=== PATIENT | female | born 1945 | race Caucasian/White ===

== ENCOUNTER 2023-01-05 07:55 | Outpatient (CLI) | payer MEDICARE, BC, SELFPAY | END 2023-01-05 07:56 | disposition home or self-care (01) | LOC: NFLDREF 12:46 | PROVIDERS: PCP Internal Medicine; Referring Provider Internal Medicine; Visit Provider Internal Medicine | DX: E03.9 Hypothyroidism, unspecified (principal); E78.5 Hyperlipidemia, unspecified; I10 Essential (primary) hypertension; E87.1 Hypo-osmolality and hyponatremia | CPT/HCPCS: 80048; 80061; 82784; 83520; 84155; 84165; 84443; 86334 ==

== ENCOUNTER 2023-02-07 09:00 | Outpatient (RCR) | payer MEDICARE, BC, SELFPAY ==
--- NOTE | 2022-11-01 15:32 | PT.OPEX ---
PT [place] Outpatient Eval PT [facility] Outpatient Eval Start: 11/01/22 10:54 Freq: Status: Active Protocol: Document 11/01/22 10:55 EVANGELINA (Rec: 11/01/22 15:28 EVANGELINA [id number]) E-signed By Isiah Sweet, PT Physical Therapy Outpatient Evaluation Insurance Information Insurance Name Medicare B,Blue Cross/Blue Shield Medical Diagnosis Trapezius muscle strain Treating Diagnosis Postural dysfunction Limited neck mobility Right trap spasm Referring MD Curiel Subjective Subjective Pt. reports onset of right sided upper trap area pain and spasms a couple of weeks ago for no apparent reason or noted injury. She feels pretty good in the morning but gets more pain and tightness as the day goes on, although she has been able to sleep well thus far. No history of similar symptoms noted. She has been doing a lot of bike riding this Spring which may be a factor in her current pain. She has good overall health with some aches and pains and joint stiffness with history of right TKA. Her goal is to be able to ride her bike and perform all ADL's without pain again. Pain Comments 01/05 10/05 now Date of Last Physician Visit 10/25/22 Current Work Status Retired Preferred Name Deborah Objective Range of Motion CROM: flexion WNL; extension 75%; left rotation 80%; right rotation 70%; bilat. SBing 60 %. Mild limitations in bilat. shoulder AROM. Strength deconditioning of scapular stabilizers, deep neck flexors , and posterior cuff muscles. Swelling none noted Palpation hypertonus/spasm of right upper trap, scalenes and interscapular muscles. Posture Increased thoracic kyphosis with mild rounding of shoulders and forward head posture. Functional Test Performed & Score negative spurlings and quadrant testing Assessment Assessment/Impression Objectively, pt. demonstrates; increased thoracic kyphosis with rounded shoulders and forward head posture; hypomobility of T-spine and ribs; mild loss of CROM but negative joint testing other than some segmental hypomobility; and hypertonus/ spasm of right upper trap, levator scapula and scalene muscles; deconditioning of scapular stabilizers and deep neck flexors. She would benefit from skilled therapy working on improving spinal mobility and postural strength . Primary Functional Limitations turning head fully, being comfortable in the evenings Plan of Care Rehabilitation Potential Excellent Physical Therapy Goals 1. Pt. will be independent with HEP for self maintenance in 8 weeks. 2. Pt. will demonstrate improved mobility of thoracic and cervical spine in 8 weeks. 3. Pt. will report a 50% or greater improvement in her right upper trap pain/spasms in 8 weeks. Coordination/Communication With Referral Source Treatment Plan/Direct Interventions Joint Mobilization,Manual Therapy,Self-Care/Home Management,Therapeutic Exercises Frequency/Duration 2-6 visits over 8 weeks. Patient Will Be Discharged From Therapy Independent w/HEP, Independently Progressing Evaluation Billing Complexity Low Certification Information Initial Certification Date 11/01/22 Ending Certification Date 01/24/23 Provider Signature Shows Agreement With POC & Medical Necessity Physician Signature & Date Requested Please Sign/Date Here Physician Comment/Change : Physician NPI Number #
--- NOTE | 2023-01-12 08:12 | PT.OPDNX ---
PT [place] Outpatient Daily Note PT [facility] Out[facility] Daily Note Start: 11/01/22 10:54 Freq: Status: Active Protocol: Document 01/11/23 13:07 AMS (Rec: 01/11/23 16:44 AMS [id number]) E-signed By Yesenia Mayorga, PT PT OP Daily Progress Note Visit Information Note Type Daily Note,Recert/Progress Note,Re-Evaluation Visit Number 4 Insurance Information Insurance Name Medicare B,Blue Cross/Blue Shield Medical Diagnosis Trapezius muscle strain Treating Diagnosis Postural dysfunction Limited neck mobility Right trap spasm Referring MD Curiel Subjective Subjective Patient returns to physical therapy with right upper trapezius pain that has not been getting better since last visit in October. She kept hoping it would get better, so didn't return, but it has gotten a little worse despite doing her exercises. She localizes pain to left upper cervical spine, radiating down into her upper back. Denies numbness, tingling, or injury to area. Does notice some painless crepitus with cervical rotation. Was taking ibuprofen, which was helpful, but not anymore. Originally, she was doing her exercises daily, but now has stopped as she felt like they weren't working. Describes aggravating factors/functional limitations as neck motion looking left > right with social gatherings and driving, looking down for prolonged periods to cut vegetables, biking, and sleeping at night (wakes her up several times each night). Feels like the manual therapy was helpful for one day, but not long-lasting relief. Pain Comments 3/10 at rest, can be more with repetitive neck movements Preferred Name Deborah Precautions Treatment Precautions/Contraindications Hypothyroidism (s/p thyroidectomy), hypertension Home Exercise Home Exercise Comments Access Code: [email or web address] URL: [email or web address] Date: 01/11/2023 Prepared by: Yesenia Mayorga Exercises - Prone W Scapular Retraction - 1 x daily - 4 x weekly - 3 sets - 12 reps - Supine Chin Tuck - 1 x daily - 4 x weekly - 3 sets - 15 reps - Seated Assisted Cervical Rotation with Towel - 1 x daily - 7 x weekly - 3 sets - 10 reps - 2-3 seconds hold Objective Other/Pertinent Objective SPINAL ALIGNMENT/POSTURE: Forward head/rounded shoulders , mild thoracic kyphosis CERVICAL AROM (PROM) Flexion: 45 Extension: 45 Right Rotation: 85 deg, mild pain Left Rotation: 65 deg* Right sidebend: WNL Left sidebend: WNL *pain in left upper cervical spine THORACIC ROM Flexion: 100% Extension: 100% Right Rotation: 100% Left Rotation: 100% Right Sidebend: 100% Left Sidebend: 100% SHOULDER AROM WNL, pain-free NECK/SHOULDER MMT: Deep neck flexor endurance test (normal is 39 sec for men , 30 sec for women): 22 sec Shoulder flexion: R 5/5 L 5/5 Shoulder abduction: R 5/5 L 5/ 5 Shoulder External Rotation: R 5/5 L 5/5 Shoulder Internal Rotation: R 5/5 L 5/5 Mid-trap: R 4/5 L 4/5 Lower trap: R 3/5 L 3/5 SPECIAL TESTS -Spurling's Test: - -Cervical distraction test: - -Upper Limb Tension Test ( Median/Ulnar/Radial): NT -Flexion rotation Test: - JOINT MOBILITY/PALPATION -Mild TTP over mid-thoracic spine and with PA mobilizations to upper cervical spine. Significant increase in tone/muscle guarding in bilateral trapezius, levator scapulae, and suboccipital muscles Patient Instructed in Risks/Benefits Yes Therapeutic Exercise Therapeutic Exercise Minutes (minutes) 15 Therapeutic Exercise: To Restore Patient was educated on Functional Status anatomy, physiology as it relates to current condition and HEP with use of handout/ [employer]. Patient verbalizes understanding and agrees with POC/goals Education: -Soreness rules with goal of symptoms returning to baseline within 24 hours and that evening -Reviewed and adapted HEP as appropriate (handout provided) , pt had not tried self- massage with tennis ball at home per last appointment so reviewed this as well Pt educated in the following exercises to improve range of motion, tissue tolerance, and/ or strength with verbal/ tactile cues as necessary: Access Code: [email or web address] URL: [email or web address]/ Date: 01/11/2023 Prepared by: Yesenia Mayorga Exercises - Prone W Scapular Retraction - 1 x daily - 4 x weekly - 3 sets - 12 reps - Supine Chin Tuck - 1 x daily - 4 x weekly - 3 sets - 15 reps - Seated Assisted Cervical Rotation with Towel - 1 x daily - 7 x weekly - 3 sets - 10 reps - 2-3 seconds hold Treatment Minutes Untimed Code Treatment Minutes 25 Timed Code Treatment Minutes 20 Total Treatment Time 45 Billing Units Therapeutic Exercise Units 1 Re-Evaluation Units 1 Assessment/Impression Assessment/Impression Pt is a 77 -year-old female who presents with continuing concerns of left upper cervical/posterior shoulder pain and moderate severity and irritability. Signs and symptoms are likely indicating / consistent with left upper trapezius pain. Patient was last seen in therapy on November 15 and instructed to return if symptoms were not improving ; pt did not return so was discharged from therapy. Re- evaluation performed today; will obtain new order from physician. On exam, patient also demonstrates notable objective findings including limited left cervical rotation ROM as compared to opposite side, increased muscle tone in upper trap/levator scapulae B , and decreased cervical deep neck flexor/periscapular strength, leading to difficulties with cervical rotation at social gatherings, driving, biking, sleeping without pain, and tasks that require prolonged cervical flexion. Reviewed and adapted patient's HEP this visit for improved patient comfort and compliance. Patient will benefit from combination of therapeutic exercise, patient education, and manual therapy prn. Patient is appropriate for skilled physical therapy services to address the above deficits. Pt was agreeable with plan of care and goals established. Plan of Care Physical Therapy Goals 1. Pt. will be independent with HEP for self maintenance in 8 weeks. 2. Pt. will demonstrate cervical rotation >10 degree improvement to left to improve ability to perform ADLs and drive. 3. Patient will report pain levels < 2/10 with all activity in 8 weeks in order to improve functional mobility at home, work, and during functional leisure activities. 4. Patient is able to sleep with waking 0-1 times per night due to pain in 8 weeks. Daily Plan of Care Change POC; See Comments Daily Plan of Care Comments Pt previously discharged, re- evaluation 01/11/23 Recertification Information Initial Certification Date 11/01/22 Recertification Start Date 01/11/23 Recertification Due Date 04/06/23 Reasons to Continue Skilled Therapy Patient returns to physical therapy 2 months since last visit with ongoing reports of left-sided cervical pain that radiates down into her shoulder. She has made improvements in therapy since her first visit as demonstrated by decreased pain severity from 8/10 to 3/10 on average, but continues to have residual pain and limited left cervical rotation ROM that limits her ability to turn her head while driving and talking to friends, sleep soundly, and maintain prolonged cervical flexion positions to cut vegetables. Will see patient 1x/week for 6 -8 more visits, working on periscapular and deep neck flexor strengthening and range of motion to increase tolerance to activity/load. Patient would benefit from continued skilled PT services to address these issues and to maximize function. Continued Plan of Care and Interventions Therapeutic exercise Manual therapy Therapeutic activities Joint mobilizations Self-care activities Neuromuscular Re-education Provider Signature Shows Agreement With POC & Medical Necessity Discharge Note Interventions Provided During Treatment Joint Mobilization,Manual Therapy,Neuromuscular Re-Ed, Therapeutic Activities, Therapeutic Exercise Thank You For This Referral .
== END 2023-06-07 23:59 | disposition home or self-care (01) ==
PROVIDERS: PCP Internal Medicine; Visit Provider Internal Medicine
DX: S46.819A Strain of other muscles, fascia and tendons at shoulder and upper arm level, unspecified arm, initial encounter (principal); M50.30 Other cervical disc degeneration, unspecified cervical region; M43.6 Torticollis; Z51.89 Encounter for other specified aftercare
CPT/HCPCS: 97110; 97140; 97161; 97164

== ENCOUNTER 2023-02-23 12:28 | Outpatient (CLI) | payer MEDICARE, BC, SELFPAY ==
--- NOTE | 2023-02-23 13:00 | CRLHL7_ITS ---
For Patients: As a result of the Century Cures Act, medical imaging exams and procedure reports are released immediately into your electronic medical record. You may view this report before your referring provider. If you have questions, please contact your health care provider. INDICATION: Neck pain. COMPARISON: 02/13/2023. TECHNIQUE: Sagittal T1, T2, and STIR sequences. Axial T2/gradient sequences. FINDINGS: Normal vertebral body alignment. No fractures. No vertebral body loss of height. No spondylolisthesis. No ligamentous injury. No suspicious osseous lesions. Normal cord signal. No intradural mass or lesion. C1-2: No spinal canal narrowing. C2-3: Disc degeneration posted disc bulge. No spinal canal neural foraminal narrowing. C3-4: Disk degeneration post disc bulging disc osteophyte complex. Mild narrowing of spinal canal. No neural foraminal narrowing. C4-5: Disc generation posted disc bulging disc osteophyte complex. Mild narrowing of spinal canal. Moderate right and mild left neural foraminal narrowing. C5-6: Disc generation posterior disc bulge disc osteophyte complex. Mild narrowing of spinal canal. No neural foraminal narrowing. C6-7: Disc generation posted disc bulged disc osteophyte complex. No spinal canal or neural foraminal narrowing. C7-T1: No narrowing of spinal canal. No neural foraminal narrowing. No spinal canal or neural foraminal narrowing in the visualized upper thoracic spine. IMPRESSION: 1. Normal alignment. No fractures. 2. Normal cord signal. 3. Cervical spondylosis. 4. At C3-4, mild narrowing of spinal canal 5. At C4-5, mild narrowing of spinal canal. Moderate right and mild left neural foraminal narrowing. 6. At C5-6, mild narrowing of spinal canal Dictated by Stu Eubanks MD @ 02/24/2023 2:03:14 PM (Electronically Signed)
== END 2023-02-23 12:29 | disposition home or self-care (01) ==
LOC: MRI 12:29
PROVIDERS: PCP Internal Medicine; Visit Provider Family Medicine
DX: M54.2 Cervicalgia (principal); M47.892 Other spondylosis, cervical region; M50.222 Other cervical disc displacement at C5-C6 level
CPT/HCPCS: 72141

== ENCOUNTER 2023-03-08 08:12 | Day surgery (SDC) | payer MEDICARE, BC, SELFPAY ==
[2023-03-08] MEDS: TETRACAINE 0.5% OPHTH 1 DROP EYE-RIGHT ×2 (09:15→09:38)
[2023-03-08] MEDS: KETOROLAC OPHTH 0.5% 1 DROP EYE-RIGHT ×2 (09:15→09:38)
[2023-03-08 09:20] VITALS: BMI 25.0
[2023-03-08 09:23] VITALS: BP 142/82; PULSE 64; RESP 16; TEMP 36.7; O2SAT 99
[2023-03-08] MEDS: SODIUM CHLORIDE 0.9 % (FLUSH) 10 ML SYRINGE IVF (09:24)
--- NOTE | 2023-03-08 09:40 | SUR.PREOP ---
The eye drops brought by the patient (Ketorolac and Prednisolone) are examined and I have determined they are labeled by the patient's pharmacy for this patient as prescribed by the surgeon. The bottles are intact, recently obtained and appear to be correct. Jude CRESPO
[2023-03-08] MEDS: TETRACAINE 0.5% OPHTH 2 DROP EYE-RIGHT (10:24)
[2023-03-08] MEDS: BALANCED SALT IRRIG SOLN 15 ML EYE-RIGHT (10:29)
--- NOTE | 2023-03-08 10:35 | P.ANES_ITS ---
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
--- NOTE | 2023-03-08 10:50 | W.ANESCHARGE ---
Anesthesia Charges Start Date/Time Anesthesia Start Date: 03/08/23 Anesthesia Start Time: 10:21 Stop Date/Time Anesthesia Stop Date: 03/08/23 Anesthesia Stop Time: 10:55 Summary Extremes of Age - Over 70 or under 1: MDA
[2023-03-08 11:05] VITALS: BP 142/77; PULSE 61; RESP 16; TEMP 37.1; O2SAT 99
--- NOTE | 2023-03-08 11:45 | P.OPTPRC_ITS ---
Procedure Note Date of procedure: 03/08/23 Will [facility] bill your pro fee for this procedure?: Yes Procedure Description: SURGEON: Madie Hua MD PREOPERATIVE DIAGNOSIS: Nuclear sclerotic cataract, right eye. POSTOPERATIVE DIAGNOSIS: Nuclear sclerotic cataract, right eye. NAME OF OPERATION: Phacoemulsification of cataract with posterior chamber intraocular lens implantation in the right eye. ANESTHESIA: Topical. ESTIMATED BLOOD LOSS: Less than 2 cc. COMPLICATIONS: None. PATHOLOGY SPECIMEN: None. INDICATIONS: See consult note for details. The risks, benefits and alternatives of the procedure were explained to the patient, who elected to proceed and signed informed consent to do so. PROCEDURE: The patient was brought to the pre-holding area where the right eye was identified as the operative eye. I placed my initials above this eye. The patient received eye drops consisting of 0.5% tetracaine, 1% tropicamide, 10% phenylephrine, and 0.5% ketorolac. The patient was then brought to the operating room where the right eye was again identified as the operative eye. The eye was prepped with Betadine and draped in the usual sterile ophthalmic fashion. A #15 super-sharp blade was used to create a paracentesis site. 1% non-preserved intracameral lidocaine was injected into the anterior chamber. Endocoat was injected into the anterior chamber. A 2.4 mm keratome was used to create a three-plane self-sealing incision 1 mm anterior to the temporal limbus. A cystotome was used to create an anterior capsular leaflet. The Utrata forceps were used to extend this to form a continuous curvilinear capsulorrhexis. Hydrodissection was performed. The cataract was removed with phacoemulsification using the [id number]-[id number] technique. The irrigation and aspiration tip was used to remove the remaining cortex. Healon was injected into the capsular bag. An LINETTE ZCB00 intraocular lens of 20.5 diopters was injected into the capsular bag. The irrigation and aspiration tip was used to remove the remaining viscoelastic. Balanced salt solution on a cannula was used to hydrate the wound, and the wound was found to be watertight. The pupil was noted to be round. DISPOSITION: The patient was taken to the recovery room and discharged to home in stable condition. The patient was instructed to call me or go to the emergency department with any sudden change, including dramatic loss of vision, severe pain in the eye or eyebrow region, nausea, or vomiting. The patient will follow up in the clinic tomorrow morning.
== END 2023-03-08 11:28 | disposition home or self-care (01) ==
PROVIDERS: PCP Internal Medicine; Visit Provider Ophthalmology
PROC: (CPT 66984; principal; 2023-03-08 09:00)
DX: H25.11 Age-related nuclear cataract, right eye (principal)
CPT/HCPCS: 66984; 00120; 00142; 99100; A9270; J2250; J3010; V2632

== ENCOUNTER 2023-03-22 08:03 | Day surgery (SDC) | payer MEDICARE, BC, SELFPAY ==
--- NOTE | 2023-03-22 08:14 | SUR.PREOP ---
The eye drops brought by the patient (Ketorolac and Prednisolone) are examined and I have determined they are labeled by the patient's pharmacy for this patient as prescribed by the surgeon. The bottles are intact, recently obtained and appear to be correct.
[2023-03-22] MEDS: TETRACAINE 0.5% OPHTH 1 DROP EYE-LEFT ×2 (08:27→08:36)
[2023-03-22] MEDS: KETOROLAC OPHTH 0.5% 1 DROP EYE-LEFT ×2 (08:34→08:41)
[2023-03-22 08:36] VITALS: BP 139/70; PULSE 61; RESP 16; TEMP 36.7; O2SAT 99
[2023-03-22 08:54] VITALS: BMI 25.0
[2023-03-22] MEDS: TETRACAINE 0.5% OPHTH 2 DROP EYE-LEFT (09:13)
[2023-03-22] MEDS: BALANCED SALT IRRIG SOLN 15 ML EYE-LEFT (09:17)
[2023-03-22 09:40] VITALS: BP 156/79; PULSE 57; RESP 16; TEMP 36.8; O2SAT 100
--- NOTE | 2023-03-22 09:45 | W.ANESCHARGE ---
Anesthesia Charges Start Date/Time Anesthesia Start Date: 03/22/23 Anesthesia Start Time: 09:10 Stop Date/Time Anesthesia Stop Date: 03/22/23 Anesthesia Stop Time: 09:44
--- NOTE | 2023-03-22 09:52 | W.PM.OPTPROC ---
Procedure Note Date of procedure: 03/22/23 Will [facility] bill your pro fee for this procedure?: Yes Procedure Description: SURGEON: Madie Hua MD PREOPERATIVE DIAGNOSIS: Nuclear sclerotic cataract, left eye. POSTOPERATIVE DIAGNOSIS: Nuclear sclerotic cataract, left eye. NAME OF OPERATION: Phacoemulsification of cataract with posterior chamber intraocular lens implantation in the left eye. ANESTHESIA: Topical. ESTIMATED BLOOD LOSS: Less than 2 cc. COMPLICATIONS: None. PATHOLOGY SPECIMEN: None. INDICATIONS: See consult note for details. The risks, benefits and alternatives of the procedure were explained to the patient, who elected to proceed and signed informed consent to do so. PROCEDURE: The patient was brought to the pre-holding area where the left eye was identified as the operative eye. I placed my initials above this eye. The patient received eye drops consisting of 0.5% tetracaine, 1% tropicamide, 10% phenylephrine, and 0.5% ketorolac. The patient was then brought to the operating room where the left eye was again identified as the operative eye. The eye was prepped with Betadine and draped in the usual sterile ophthalmic fashion. A #15 super-sharp blade was used to create a paracentesis site. 1% non-preserved intracameral lidocaine was injected into the anterior chamber. Endocoat was injected into the anterior chamber. A 2.4 mm keratome was used to create a three-plane self-sealing incision 1 mm anterior to the temporal limbus. A cystotome was used to create an anterior capsular leaflet. The Utrata forceps were used to extend this to form a continuous curvilinear capsulorrhexis. Hydrodissection was performed. The cataract was removed with phacoemulsification using the [id number] technique. The irrigation and aspiration tip was used to remove the remaining cortex. Healon was injected into the capsular bag. An LINETTE ZCB00 intraocular lens of 20.0 diopters was injected into the capsular bag. The irrigation and aspiration tip was used to remove the remaining viscoelastic. Balanced salt solution on a cannula was used to hydrate the wound, and the wound was found to be watertight. The pupil was noted to be round. DISPOSITION: The patient was taken to the recovery room and discharged to home in stable condition. The patient was instructed to call me or go to the emergency department with any sudden change, including dramatic loss of vision, severe pain in the eye or eyebrow region, nausea, or vomiting. The patient will follow up in the clinic tomorrow morning.
--- NOTE | 2023-03-22 11:54 | W.ANESCHARGE ---
Anesthesia Charges Start Date/Time Anesthesia Start Date: 03/22/23 Anesthesia Start Time: 09:10 Stop Date/Time Anesthesia Stop Date: 03/22/23 Anesthesia Stop Time: 09:44 Summary Extremes of Age - Over 70 or under 1: MDA
== END 2023-03-22 10:11 | disposition home or self-care (01) ==
PROVIDERS: PCP Internal Medicine; Visit Provider Ophthalmology
PROC: (CPT 66984; principal; 2023-03-22 08:15)
DX: H25.12 Age-related nuclear cataract, left eye (principal)
CPT/HCPCS: 66984; 00142; 99100; A9270; J2250; J3010; V2632

== ENCOUNTER 2023-04-28 08:45 | Outpatient (RCR) | payer MEDICARE, BC, SELFPAY ==
--- NOTE | 2023-03-16 15:36 | PT.OPEX ---
PT [place] Outpatient Eval PT [facility] Outpatient Eval Start: 03/13/23 14:30 Freq: Status: Active Protocol: Document 03/16/23 14:06 CRP (Rec: 03/16/23 15:34 CRP [id number]) E-signed By Bradford Norton, PT Physical Therapy Outpatient Evaluation Insurance Information Recert Due Date 06/14/23 Insurance Name Medicare B Medical Diagnosis Cervical spine pain Cervical spine Deg disc disease Treating Diagnosis Neck pain Neck stiffness Referring MD Dr Ulloa Subjective Subjective Pt reports about a 2 month hx of R sided neck pain that can radiate out to the point of the shoulder. No known injury . Sleep is generally an issue because of meds she has attempted taking for her neck. Pain is intermittent. When in social events she needs to turn her whole body to face the person she is talking to. Every so often she does have HAs. No UE sxs. Pt notes that sxs tend to be inconsistent. She does not always know what will cause her sxs. Is taking Celebrex but notes that the sxs don't always respond well to the meds. Pain Comments -11/05 Current Work Status Retired Objective Range of Motion Cervical ROM Flex WNL Ext min dec R rot 25% dec with pain on over pressure L rot 10% dec Bilat SB WNL UE ROM WNL bilat Strength MMT Myotomes WNL Palpation Pain with grade 2 mobs R C4-7 Hypomob segmental testing R C4 -7 Posture Mild/mod forward head Sensation/Reflexes Sensation intact to light touch Assessment Assessment/Impression Pt presents to the clinic with signs and sxs consistent with cervical spine DDD/DJD and resulting facet mediated pain on the R. With this the pt shows decreased cervicothoracic spine ROM, painful hypomobility of the cervical spine segments, and poor cervicothoracic spine motor control. Skilled PT is necessary to incorporate ther ex, nm long, manual therapy and pt education to decrease pain and improve functional mobility. Primary Functional Limitations Daily activity with neck motion Plan of Care Rehabilitation Potential Excellent Physical Therapy Goals 1. Pt will be 100% independent with HEP in 6 weeks. 2. Pt will be able to turn head to check traffic without pain in 10 weeks. 3. Pt will be able to socialize with 80% decrease in pain in 12 weeks. Coordination/Communication With Referral Source Treatment Plan/Direct Interventions Joint Mobilization,Manual Therapy,Neuromuscular Re-ed, Self-Care/Home Management, Therapeutic Activities, Therapeutic Exercises Frequency/Duration 1-2x/wk for 12 weeks Patient Will Be Discharged From Therapy Completion of LTG(s),Skills Plateau,Independent w/HEP, Independently Progressing Evaluation Billing Untimed Code Treatment Minutes 30 Complexity Moderate Certification Information Initial Certification Date 03/16/23 Ending Certification Date 06/14/23 Provider Signature Shows Agreement With POC & Medical Necessity Physician Signature & Date Requested Please Sign/Date Here Physician Comment/Change : Physician NPI Number #
== END 2023-08-26 23:59 | disposition home or self-care (01) ==
PROVIDERS: PCP Internal Medicine; Visit Provider Family Medicine
DX: M50.30 Other cervical disc degeneration, unspecified cervical region (principal); M43.6 Torticollis; Z51.89 Encounter for other specified aftercare
CPT/HCPCS: 97110; 97140; 97162

== ENCOUNTER 2023-11-02 10:00 | Outpatient (RCR) | payer MEDICARE, BC, SELFPAY ==
--- NOTE | 2023-09-26 12:32 | PT.OPEX ---
PT [place] Outpatient Eval PT [facility] Out[facility] Eval Start: 09/26/23 07:26 Freq: Status: Active Protocol: Document 09/26/23 07:27 CRP (Rec: 09/26/23 09:12 CRP [id number]) E-signed By Bradford Norton PT Physical Therapy Outpatient Evaluation Insurance Information Recert Due Date 12/25/23 Insurance Name Medicare B Medical Diagnosis Cervical DDD Cervical spine pain Referring MD Dr Curiel Subjective Subjective Pt reports that she is having issues with neck pain that is on the R side. Pt had the same issue at the end of last year. She did have PT that helped. She was doing well for most of the time since that PT but then in the last couple of weeks she has had a return of pain. No known reason for pain. Pain will wake her at night and then it is hard to sleep. Pain is sore and stiff that can be constant with times of sharp stabbing pain. Cannot sit and socialize without pain because she needs to be turning her head to talk to them. Looking down to read does seem to aggravate it. Pain is sore to the touch and pain can radiate to the point of the shoulder. No numbness or tingling. This episode of pain seems worse than last year. Her PT exer feels fine but does not seem to help. Pain Comments 12/05 Current Work Status Retired Objective Other/Pertinent Objective Cervical ROM: Flex WNL. Ext min dec, L rot min dec, R rot mod dec with stretch, bilat SB mod dec Shoulder ROM: WNL bilat MMT: Myotomes WNL Sensation intact to light touch ULNT - WNL Segmental mobility: Seated testing. R to L side glide painful and restricted C4-7. L rot R restricted without pain C4-5. Dorsal/ventral glides restricted C3-4 Functional Test Performed & Score NDI - 34 Assessment Assessment/Impression Pt presents to the clinic with acute on chronic right sided neck pain. Pts pain presentation is very mechanical with painful loss of right to left side gliding and rotation. Pt also demonstrates poor nm control of the CT spine. Skilled PT is necessary to incorporate ther ex, nm long, manual therapy and pt education to decrease pain and improve functional mobility. Primary Functional Limitations Sleep Reading Turning head to check traffic Plan of Care Rehabilitation Potential Excellent Physical Therapy Goals 1. Pt will be independent with HEP in 6 weeks. 2. Pt will turn head to check traffic while driving in 8 weeks. 3. Pt will sleep through the night without pain in 12 weeks . Treatment Plan/Direct Interventions Joint Mobilization,Manual Therapy,Neuromuscular Re-ed, Self-Care/Home Management, Therapeutic Activities, Therapeutic Exercises Frequency/Duration 1-2x/wk for 12 weeks Patient Will Be Discharged From Therapy Completion of LTG(s),Skills Plateau,Independent w/HEP, Independently Progressing Evaluation Billing Untimed Code Treatment Minutes 30 Complexity Moderate Certification Information Initial Certification Date 09/26/23 Ending Certification Date 12/25/23 Provider Signature Shows Agreement With POC & Medical Necessity Physician Signature & Date Requested Please Sign/Date Here Physician Comment/Change : Physician NPI Number #
== END 2024-02-07 13:27 | disposition home or self-care (01) ==
PROVIDERS: PCP Internal Medicine; Visit Provider Internal Medicine
DX: M50.30 Other cervical disc degeneration, unspecified cervical region (principal); Z51.89 Encounter for other specified aftercare
CPT/HCPCS: 97110; 97140; 97162

== ENCOUNTER 2024-01-12 07:32 | Outpatient (CLI) | payer MEDICARE, BC, SELFPAY ==
--- OUTSIDE RECORDS SUMMARY | 2024-01-12 13:15 | XMS_ITS | Clinical Summary ---
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 0 03/19/2015 Active Active Problems Problem Noted Date Diagnosed Date Lumbar disc herniation 04/29/2015 Colon polyp 03/24/2010 Overview: Colonoscopy 02/2010 polyp repeat in 5 years Colonoscopy 02/2015 normal repeat in 5 years Asymptomatic postmenopausal status (age-related) (natural) 08/23/2006 Overview: Menopause Female stress incontinence 08/23/2006 Unspecified essential hypertension 08/23/2006 Candidiasis of vulva and vagina 08/23/2006 Rosacea Immunizations Name Administration Dates Next Due AMB Influenza, IIV3 (Age >=3 years)(Flu Clinic [facility]) 03/26/2010 Influenza A (H1N1), Inactivated (Age >=3 Years) 05/19/2009 Influenza, IIV3 (Age >=3 years) 04/20/2009 Td (Age >=7 Years) 02/21/2005 Zoster (Zostavax-ZVL, live) 08/23/2006 Family History Medical History Relation Name Comments Heart Disease Father Psychiatric illness Mother Kelsey thompson's Relation Name Status Comments Father Mother Social History Tobacco Use Types Packs/Day Years Used Date Smoking Tobacco: Never Alcohol Use Standard Drinks/Week Comments Not Asked 0 (1 standard drink = 0.6 oz pur e alcohol) Sex and Gender Information Value Date Recorded Sex Assigned at Not on file Gender Identity Not on file Sexual Orientation Not on file Obstetrics History Last Filed Vital Signs Vital Sign Reading Time Taken Comments Blood Pressure 103/67 03/19/2015 9:25 AM CDT Pulse 60 03/19/2015 9:25 AM CDT Temperature - - Respiratory Rate - - Oxygen Saturation 100% 03/19/2015 9:25 AM CDT Inhaled Oxygen Concentration - - Weight - - Height - - Body Mass Index - - Plan of Treatment Health Maintenance Due Date Last Done Comments Tdap 1954 Depression screening for age 12+ 1955 BMI (ht and wt on same day) for age 18+ 1961 Zoster (shingles) series for age 50+ (2 of 3) 10/18/2006 08/23/2006 DEXA/DXA scan for age 65+ 2008 Pneumococcal series for age 65+ (1 of 1 - PCV) 2008 Tetanus booster 02/21/2015 02/21/2005 COVID-19 vaccine series ( - 2022-24 season) 2023 Influenza for age 65+ 01/28/2024 03/26/2010 , 05/19/2009, 04/20/2009 Care Teams Bumper Machine Operator Relationship Specialty Start Date End Date Laura Shaw MD PCP - General 03/23/10
== END 2024-01-12 07:33 | disposition home or self-care (01) ==
LOC: NFLDREF 13:12
PROVIDERS: PCP Internal Medicine; Referring Provider Internal Medicine; Visit Provider Internal Medicine
DX: E78.5 Hyperlipidemia, unspecified (principal); E03.9 Hypothyroidism, unspecified; I10 Essential (primary) hypertension
CPT/HCPCS: 80048; 80061; 84443

== ENCOUNTER 2024-03-14 09:45 | Outpatient (RCR) | payer MEDICARE, BC, SELFPAY ==
--- NOTE | 2023-11-15 09:19 | PT.OPEX ---
PT [place] Outpatient Eval PT [facility] Outpatient Eval Start: 11/14/23 13:47 Freq: Status: Active Protocol: Document 11/14/23 13:47 CRP (Rec: 11/14/23 15:41 CRP [id number]) E-signed By Bradford Norton PT Physical Therapy Outpatient Evaluation Insurance Information Recert Due Date 02/12/24 Insurance Name Medicare B Medical Diagnosis R Achilles tendinitis R heel pain R Knee pain Referring MD Dr Curiel Subjective Subjective Hiking 3-5 miles per day about 4x/wk. 2.5 months ago Suddenly had sharp pain top and side of R foot. Was bad enough to need to limp and go to the Dr. Attempted RICE, stretching but had no improvement. Pain then started to become an issue up her rousseau and to the R knee. Has even had some issues of R hip pain and tightening into the R lower leg. No numbness or tingling. Low back seem generally ok but can cause some strain if she over does it. She does not feel it's connected. Does feel she has some mild foot and lateral ankle swelling. Sitting is fine. Getting in the morning is really painful. Does not affect her sleep though. Can only walk a block or so and the foot gets worse. Ice and rest does seem to help. But when she gets up to move after sitting her pain is worse. Pain Comments 09/05 Current Work Status Retired Objective Other/Pertinent Objective Gait - without shoes 1.5 minutes - began having R foot pain Functional mobility - DF squat - caused pain along the top of the R foot Trunk ROM: flex WNL, Ext min dec, R SB min dec, L SB min dec, bilat rot WNL HIp ROM WNL KNee ROM WNL Ankle ROM: DF WNL bilat, PF WNL bilat - top of foot pain on R with over pressure, Inv WNL bilat pain at top of foot on R side over pressure. EV WNL MMT: Ankle DF WNL bilat, Ev WNL bilat, INv 4-/5 on R, PF SLR testing - positive with tibial nn bias Assessment Assessment/Impression Pt presents to the clinic with ongoing foot/ankle/heel/ achilles pain. Along with this the pt notes R knee pain. Pts presentation appears consistent with overuse injury of the R foot/ankle/achilles. She demonstrates painful hypomobility of the right talocrural joint, foot/ankle weakness and painful achilles/ gastroc. With this, the pt shows adverse neurodynamics into the R LE which is specifically noted with tibial nn stress/strain. Skilled PT is necessary to incorporate ther ex, nm long, manual therapy and pt education to decrease pain and improve functional mobility. 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 Pt will be independent with HEP in 6 weeks. 2. 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 3. Pt will walk 2-3 miles without pain in 12 weeks. Coordination/Communication With Referral Source Treatment Plan/Direct Interventions Gait Training,Joint Mobilization,Manual Therapy, Neuromuscular Re-ed,Self-Care/ Home Management,Therapeutic Activities,Therapeutic Exercises Frequency/Duration 1-2x/wk for 12 weeks Patient Will Be Discharged From Therapy Completion of LTG(s),Skills Plateau,Independent w/HEP, Independently Progressing Evaluation Billing Untimed Code Treatment Minutes 40 Complexity Moderate Certification Information Initial Certification Date 11/14/23 Ending Certification Date 02/12/24 Provider Signature Required Yes Provider Signature Shows Agreement With POC & Medical Necessity Physician NPI Number Write NPI# Here Physician Comment/Change : Physician Signature & Date Requested Please Sign/Date Here
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
== END 2024-07-12 23:59 | disposition home or self-care (01) ==
PROVIDERS: PCP Internal Medicine; Visit Provider Internal Medicine
DX: M76.61 Achilles tendinitis, right leg (principal); M25.561 Pain in right knee; M79.671 Pain in right foot; M76.31 Iliotibial band syndrome, right leg; M54.2 Cervicalgia; Z51.89 Encounter for other specified aftercare
CPT/HCPCS: 97110; 97140; 97162; 97164

== ENCOUNTER 2024-11-06 13:00 | Outpatient (CLI) | payer MEDICARE, BC, SELFPAY ==
--- NOTE | 2024-11-06 13:45 | CRLHL7_ITS ---
For Patients: As a result of the Century Cures Act, medical imaging exams and procedure reports are released immediately into your electronic medical record. You may view this report before your referring provider. If you have questions, please contact your health care provider. Indication: Low back pain. Technique: Multiplanar, multisequence MRI of the lumbar spine was performed without intravenous contrast. Comparison: MRI lumbar spine 04/27/2015. Findings: There are 5 lumbar type vertebral segments identified. The vertebral body heights are maintained without evidence of fracture. There is no discrete T1 hypointense marrow infiltrating process. The conus medullaris terminates at L1, normal. Cauda equina appears unremarkable. T12-L1: Disc degeneration. Minimal spinal canal narrowing. No neural foraminal narrowing. Mild facet arthropathy. L1-2: Disc degeneration. Mild spinal canal narrowing. Mild right neural foraminal narrowing. Mild facet arthropathy. L2-3: Severe disc degeneration with osteophytic spurring. Mild spinal canal narrowing. Mild neural foraminal narrowing. Mild facet arthropathy. Stable. L3-4: Disc degeneration. Disc bulge combined with ligamentum flavum thickening and facet arthropathy results in severe spinal canal narrowing. Mild neural foraminal narrowing. Moderate facet arthropathy. Progressed. L4-5: Disc degeneration. Disc bulge combined with ligamentum flavum thickening and facet arthropathy results in severe spinal canal narrowing. Moderate neural foraminal narrowing. Mild facet arthropathy. Progressed. L5-S1: Disc degeneration, with Modic type 1 endplate change. Disc bulge combined with facet arthropathy resulting in [id number] spinal canal narrowing. Severe neural foraminal narrowing. Progressed. Mild sacroiliac joint osteoarthritis. Impression: 1. At L3-4, progressed severe spinal canal stenosis. 2. At L4-5, progressed severe spinal canal and moderate neural foraminal stenosis. 3. At L5-S1, progressed mild to moderate spinal canal with severe neural foraminal stenosis. Dictated by Bijan Muro MD @ 11/07/2024 1:11:28 PM (Electronically Signed)
== END 2024-11-06 13:01 | disposition home or self-care (01) ==
LOC: MRI 13:02
PROVIDERS: PCP Internal Medicine; Visit Provider Internal Medicine
DX: M54.50 Low back pain, unspecified (principal); M48.061 Spinal stenosis, lumbar region without neurogenic claudication; M48.07 Spinal stenosis, lumbosacral region; M54.16 Radiculopathy, lumbar region
CPT/HCPCS: 72148

== ENCOUNTER 2024-11-26 08:45 | Outpatient (CLI) | payer MEDICARE, BC, SELFPAY ==
--- OUTSIDE RECORDS SUMMARY | 2024-11-26 15:43 | XMS_ITS | Data Portability ---
Author Organization [place] - [facility], [employer] Address [address] [place] [address] Assessment Encounter Date Assessment Date Assessment LastModified by Organization Details LastModified Time 02/05/2024 02/05/2024 Educated patient on the etiology, prognosis, treatment options for plantar fasciitis and achilles tendintis. Reviewed two previously obtained nonweightbearing radiographs of the right foot and reviewed findings with patient as noted above. For Achilles Tendonitis, I recommended the patient continue with stretching exercises as instructed in physical therapy but to perform them while wearing shoes. I advised the patient to avoid walking barefoot to reduce strain on the Achilles tendon. I also suggested the use of Voltaren gel (diclofenac) applied to the back of the heel to help with inflammation. The patient was instructed to purchase this [id number]. For Plantar Fasciitis, I explained the importance of wearing supportive shoes at all times, especially first thing in the morning. I recommended the patient bring their current inserts and shoes to the next appointment for evaluation. I also discussed the potential benefit of using non-custom inserts, which are available for purchase at the clinic. For the Infracalcaneal Spur, I explained that the bone spur itself is not the primary cause of pain but indicates a long-standing issue. I reassured the patient that the focus should be on managing the inflammation and supporting the arch of the foot. I prescribed a Medrol Dose Pack (methylprednisolon e) to help with inflammation and sent the prescription electronically to [facility]. I instructed the patient to follow up in two weeks with their shoes and inserts for further evaluation. Patient verbalized understanding and is in agreement with the above treatment plan. Not available 02/05/2024 19:58:52 02/19/2024 02/19/2024 Discussed medica l conditions with patient today. For plantar fasciitis, I advised the patient to continue using the current inserts and to break them in gradually by increasing wear time by one hour each day. I also recommended continuing with the Achilles tendon stretching exercises. The patient was instructed to take ibuprofen as needed for pain and swelling.I emphasized the importance of gradual return to activity to avoid exacerbating the condition. I reassured the patient that other treatment options are available if needed in the future. The patient was advised to continue using the Altra shoes, which are supportive and beneficial for their condition. Patient wished to be seen on an as-needed basis due to her improvement. Patient verbalized understanding and is in agreement with the above treatment plan. Not available 02/20/2024 11:02:20 04/15/2024 04/15/2024 Discussed medica l conditions with patient today. For the plantar fasciitis, I recommended the patient try using her current inserts in her hiking boots and loosening the laces to accommodate the inserts. I also suggested considering custom orthotics if the current inserts do not provide sufficient relief. I advised the patient to avoid exercises that exacerbate her foot pain and to document her gym activities for further review. I told the patient to call us if the pain persists or worsens. For the high arch foot, I discussed the potential benefits of custom orthotics to provide better arch support and prevent further complications. I suggested trying the current inserts with added arch fill to see if it alleviates the pain. I scheduled a follow-up appointment as needed and instructed the patient to contact us if she experiences any issues or if the pain does not improve. Patient verbalized understanding and is in agreement with the above treatment plan. Total time spent on the E/M service was 30 minutes, which included reviewing patient history, performing a medically appropriate examination, counseling the patient, and documenting clinical information. Not available 04/15/2024 20:32:30 04/29/2024 04/29/2024 Discussed medica l conditions with patient today. For the Achilles tendonitis, I recommended the patient continue with low-impact exercises and avoid activities that exacerbate the pain. I suggested trying a heel lift in both shoes to reduce strain on the Achilles tendon. These were fashioned and dispensed for her today and she was instructed on proper use. The patient was advised to monitor the pain and report any significant changes. For the plantar fasciitis, I prescribed a medrol dosepak for one week to reduce inflammation as she has responded well to this in the past. I instructed the patient to avoid high-impact activities during this period. I also recommended trying more supportive [id number] inserts, pedpilllows, which she may consider in the future. Additionally, I suggested considering ultrasound therapy and iontophoresis via PT referral if the pain persists. I scheduled a follow-up appointment in two weeks to assess the patient's progress and response to the new treatment plan. Patient verbalized understanding and is in agreement with the above treatment plan. Total time spent on the E/M service was 30 minutes, which included reviewing patient history, performing a medically appropriate examination, counseling the patient, and documenting clinical information. Not available 04/29/2024 16:46:53 05/13/2024 05/13/2024 Discussed medica l conditions with patient today. For the plantar fasciitis, I recommended that the patient continue with the current supportive footwear and stretching exercises. I advised the patient to monitor symptoms over the next month or two and consider physical therapy if there is no improvement. I also discussed the potential benefits of physical therapy, including hands-on modalities and ultrasound, which are not available in the current setting. For the Achilles tendonitis, I suggested the patient continue using the heel lift and perform stretching exercises. I advised the patient to observe the symptoms for another month or two and consider physical therapy if the condition does not improve. I explained that physical therapy could provide more intensive and focused treatment options. I scheduled a follow-up appointment in six weeks to reassess the patient's condition. I instructed the patient to call if symptoms worsen before the follow-up. The patient was informed to schedule the follow-up at the frontload driver and to contact us if any issues arise in the interim. Patient verbalized understanding and is in agreement with the above treatment plan. Not available 05/13/2024 16:03:45 Plan of Treatment Reminders Order Date Submit Date Provider Last Modified By Organization Details Last Modified Time Details Appointments None recorded. Lab None recorded. Referral None recorded. Procedures None recorded. Surgeries None recorded. Imaging None recorded. Medication Orders Medrol (Luis) 4 mg tablets in a dose pack RICK [facility] [address] [place], [address], 4 14:31:24 Medrol (Luis) 4 mg tablets in a dose pack 025 mmagnus3 [facility] [address] [place], [address], 5 11:10:45 Patient TargetsNo targets recorded. Patient InstructionsNo instructions recorded. Reason for Referral None Reported. Medical Equipment None Reported. Allergies Allergen ID Allergen Name Allergen Category Reaction Reaction Severity Criticality Documentation Date Start Date Code Code System Note Provider Name and Address Organization Details Recorded Time Substance with sulfonami de structure and antibacte rial mechanism of action (substanc e) medicatio n Not available Not available Not available 02/20/2024 [id number] JAIRO Florentino - [facility] 09:56:52 Medications Name Sig Start Date Stop Date Status Note LastModified by Organization Details LastModified Time celecoxib 200 mg capsule TAKE ONE CAPSULE(2 00MG) BY MOUTH EVERY DAY 02/19 completed Not Available Not Available Not Available ofloxacin 0.3 % eye drops INSTILL 1 DROP TO OPERATIVE EYE 4 TIMES A DAY STARTING MONDAY BEFORE SURGERY 02/19 completed Not Available Not Available Not Available Medrol (Luis) 4 mg tablets in a dose pack Take 1 dose pk by oral route. 2023 active Not Available Not Available Not Avai lable lovastatin 10 mg tablet active Not Available Not Available Not Available prednisolon e acetate 1 % eye drops,suspe nsion INSTILL 1 DROP TO OPERATIVE EYE 4 TIMES A DAY STARTING AFTER SURGERY 02/19 completed Not Available Not Available Not Available levothyroxi ne 50 mcg tablet active Not Available Not Available Not Available omeprazole 20 mg capsule,del ayed release active Not Available Not Available Not Available lisinopril 20 mg-hydrochl orothiazide 25 mg tablet active Not Available Not Available Not Available ketorolac 0.4 % eye drops 02/19 completed Not Available Not Available Not Available sennosides active Not Available Not Av ailable Not Available Vitals Date Recorded Body height Body mass index (BMI) Body weight Provider Name and Address Organization Details Last Updated DateTime 02/20/2024 167.64 cm 25.5 kg/m2 80570.59 g Bina Mccoy [place] - [facility] 02/20/2024 09:56:45 Social History None recorded. Functional Status None recorded. Mental Status None recorded. Family History Nothing Reported. Medical History No medical history recorded. Gynecological HistoryNo gynecological history recorded. Obstetrics History GPAL:G 0 P 0 0 0 0 Past Encounters Encounter ID Performer Location Encounter Start Date Encounter Closed Date Diagnosis/Indication Diagnosis SNOMED-CT Code Diagnosis ICD10 Code Diagnosis Note [id number] [facility] S[facility] [address] [place] [address] 02/05/2024 09:44:39 02/06/2024 12:50:38 Plantar fasciitis 056396192 M72.2 Right Achi lles tendinitis 6602995694 12677 M76.61 Contractur e of joint of left ankle 8403867268 64383 M24.572 Contractur e of joint of right ankle 1348248298 95510 M24.571 Pain in right foot 39573 85128 98043 M79.671 [id number] DREAD S[facility] d [address] [place] [address] 02/19/2024 11:00:51 02/21/2024 09:35:31 Plantar fasciitis 003227920 M72.2 Right Achi lles tendinitis 8235458909 47962 M76.61 Contractur e of joint of left ankle 0116102181 02875 M24.572 Contractur e of joint of right ankle 8203263794 51759 M24.571 Pain in right foot 18720 96008 27895 M79.671 [id number] [facility] d [address] [place] [address] 04/15/2024 11:35:44 04/16/2024 09:36:18 Plantar fasciitis 809907895 M72.2 Right Achi lles tendinitis 4586631767 59026 M76.61 Contractur e of joint of left ankle 6104327473 07491 M24.572 Contractur e of joint of right ankle 4139375552 79716 M24.571 Pain in right foot 91904 01057 80399 M79.671 [id number] DREAD SONkiran raman [address] [place] [address] 04/29/2024 11:01:41 04/30/2024 11:35:21 Plantar fasciitis 079222181 M72.2 Right Achi lles tendinitis 7352085144 36003 M76.61 Contractur e of joint of left ankle 0168514495 78009 M24.572 Contractur e of joint of right ankle 4441411788 52551 M24.571 Pain in right foot 62717 68699 63808 M79.671 [id number] D[facility] d [address] [place] [address] 05/13/2024 13:55:10 05/13/2024 20:39:13 Plantar fasciitis 500652146 M72.2 Right Achi lles tendinitis 7509104725 63226 M76.61 Contractur e of joint of left ankle 7227181645 88172 M24.572 Contractur e of joint of right ankle 2870101262 71330 M24.571 Pain in right foot 08710 55888 31097 M79.671 Health Concerns Section Related Observation LastModified by Organization Detai ls LastModified Time None Recorded Concern Status LastModified by Organization Details LastModified Time None Recorded Advance Directives Directive None Recorded Payers Insurance Date Sequence Insurance Name Policy Number Policy Porter Covered Member ID Porter Member ID Guarantor Name 05/13/2024 1 [facility] - MEDICARE COST [id number] No Gannon [id number] No Gannon Notes Date Note Type Note Provider Name and Address Organization Details Recorded Time 02/05/2024 text/html The patient pres ents with a complaint of heel pain, initially diagnosed as achilles tendinitis by her PCP. The patient reports that physical therapy did not alleviate the symptoms, and subsequent x-rays revealed a bone spur to her heel. The pain is located at the bottom and back of the heel and has been ongoing for several months. The patient has tried ibuprofen with uncertain effectiveness. The pain worsens with the first steps in the morning and increases in the evening. The patient also reports swelling in the affected area. The patient has a history of back issues causing numbness in the left foot, described as feeling like a water balloon. The patient is an avid bicycler and walker but experiences discomfort after walking about a third of a mile. The patient recently switched to new walking shoes ([employer] brand) after using worn-out hiking boots. CARMELO WASSERMAN DPM [address] [place], [address], [facility] 02/05/2024 19:59:03 02/19/2024 text/html The patient pres ents today for a follow-up of plantar fasciitis and foot pain in the right foot. The patient reports significant improvement with the medrol dosepak. The patient also found relief with the use of Voltaren ointment. The patient has not used Voltaren for several days and has been able to walk two and a half miles today and four miles on Monday. The patient takes ibuprofen once a day and notes some residual swelling but is pleasantly surprised by the improvement. The patient mentions that the right foot is primarily affected and has some numbness due to a back injury. The patient has been using new inserts and finds them comfortable after initially disliking them. The patient has been active, especially with guests at home, and has been wearing Altra shoes, which were purchased by the patient's son. PRIOR HISTORY:The patient presents with a complaint of heel pain, initially diagnosed as achilles tendinitis by her PCP. The patient reports that physical therapy did not alleviate the symptoms, and subsequent x-rays revealed a bone spur to her heel. The pain is located at the bottom and back of the heel and has been ongoing for several months. The patient has tried ibuprofen with uncertain effectiveness. The pain worsens with the first steps in the morning and increases in the evening. The patient also reports swelling in the affected area. The patient has a history of back issues causing numbness in the left foot, described as feeling like a water balloon. The patient is an avid bicycler and walker but experiences discomfort after walking about a third of a mile. The patient recently switched to new walking shoes ([employer] brand) after using worn-out hiking boots. CARMELO WASSERMAN DPM [address] [place], [address], [facility] 02/20/2024 11:02:33 04/15/2024 text/html The patient pres ents today for ongoing management of plantar fasciitis and Achilles tendonitis. The patient reports persistent pain, particularly at night, localized to the bottom of the right heel, which prevents her from wearing shoes comfortably. She mentions that the pain was alleviated by the use of methylprednisone, which she had taken previously and found effective. The patient has been attending physical therapy for her knee and neck issues and has recently started going to the gym for weightlifting. She has stopped doing leg pushes due to pain. The patient is concerned about whether her gym activities might be exacerbating her foot pain. She has been using inserts in her shoes, which is the most comfortable for her. The patient mentions that her physical therapist has stopped, and she is no longer attending physical therapy sessions. She also reports some swelling on the top outside of her right foot and pain when wearing hiking boots. PRIOR HISTORY:The patient presents with a complaint of heel pain, initially diagnosed as achilles tendinitis by her PCP. The patient reports that physical therapy did not alleviate the symptoms, and subsequent x-rays revealed a bone spur to her heel. The pain is located at the bottom and back of the heel and has been ongoing for several months. The patient has tried ibuprofen with uncertain effectiveness. The pain worsens with the first steps in the morning and increases in the evening. The patient also reports swelling in the affected area. The patient has a history of back issues causing numbness in the left foot, described as feeling like a water balloon. The patient is an avid bicycler and walker but experiences discomfort after walking about a third of a mile. The patient recently switched to new walking shoes ([employer] brand) after using worn-out hiking boots. CARMELO WASSERMAN DPM [address] [place], [address], [facility] 04/15/2024 20:32:42 04/29/2024 text/html The patient pres ents for a follow-up regarding right-sided Achilles tendonitis and plantar fasciitis. The patient reports that today is a good day and mentions traveling over the weekend, which was challenging. The patient followed the recommendation to try hiking boots and walked over three blocks without discomfort. However, the patient can only wear two specific pairs of shoes without pain. The pain is located on the sole of the right heel, with no pain at the back of the heel anymore. The patient has been doing stretches regularly and going to the gym but avoided the leg press. PRIOR HISTORY:The patient presents with a complaint of heel pain, initially diagnosed as achilles tendinitis by her PCP. The patient reports that physical therapy did not alleviate the symptoms, and subsequent x-rays revealed a bone spur to her heel. The pain is located at the bottom and back of the heel and has been ongoing for several months. The patient has tried ibuprofen with uncertain effectiveness. The pain worsens with the first steps in the morning and increases in the evening. The patient also reports swelling in the affected area. The patient has a history of back issues causing numbness in the left foot, described as feeling like a water balloon. The patient is an avid bicycler and walker but experiences discomfort after walking about a third of a mile. The patient recently switched to new walking shoes ([employer] brand) after using worn-out hiking boots. CARMELO WASSERMAN, DPM [address] [place], [address], [facility] - [facility] 04/29/2024 16:47:04 05/13/2024 text/html The patient pres ents for a follow-up regarding right-sided Achilles tendonitis and plantar fasciitis. The patient reports that the medrol dosepack has helped alleviate symptoms significantly. However, the patient still experiences occasional sharp pain in the right Achilles tendon, especially after stretching. The patient has been diligent with stretching exercises and wears supportive shoes.The patient also mentions using a heel lift previously provided, which made a noticeable difference. The patient attempted to replicate the heel lift at [facility] but was unsuccessful. PRIOR HISTORY:The patient presents with a complaint of heel pain, initially diagnosed as achilles tendinitis by her PCP. The patient reports that physical therapy did not alleviate the symptoms, and subsequent x-rays revealed a bone spur to her heel. The pain is located at the bottom and back of the heel and has been ongoing for several months. The patient has tried ibuprofen with uncertain effectiveness. The pain worsens with the first steps in the morning and increases in the evening. The patient also reports swelling in the affected area. The patient has a history of back issues causing numbness in the left foot, described as feeling like a water balloon. The patient is an avid bicycler and walker but experiences discomfort after walking about a third of a mile. The patient recently switched to new walking shoes ([employer] brand) after using worn-out hiking boots. CARMELO WASSERMAN, DPSe [address] [place], [address], [facility] - [facility] 05/13/2024 16:03:56 OBGyn Episode No OBEpisode recorded.
--- OUTSIDE RECORDS SUMMARY | 2024-11-26 15:44 | XMS_ITS | Clinical Summary ---
Author Organization [facility] Address [address] [place] [id number] Care Team Providers Care Casing Running Machine Tender Name Role Phone Smitha Curiel MD Primary Care Provider [phone] Allergies Active Allergy Reactions Criticality Noted Date Comments Sulfur (Not Sulfa Antibiotic) Rash 2009 Medications ATENOLOL 50 MG TAB take 1 tablet (50mg) by oral route twice daily 0 Active LEVOTHROID 50 MCG TAB take 1 tablet (50mcg) by oral route once daily 100 1 11/06/2006 Active lisinopril-hydro chlorothiazide, 20-25 mg, (PRINZIDE, ZESTORETIC) 20-25 mg per tablet Take 1 tablet by mouth once daily. 0 03/19/2015 Active Active Problems Problem Noted Date Diagnosed Date Lumbar disc herniation 04/29/2015 Colon polyp 03/24/2010 Overview (03/19/2015): Colonoscopy 02/2010 polyp repeat in 5 years Colonoscopy 02/2015 normal repeat in 5 years Asymptomatic postmenopausal status (age-related) (natural) 08/23/2006 Overview (08/23/2006): Menopause Female stress incontinence 08/23/2006 Unspecified essential hypertension 08/23/2006 Candidiasis of vulva and vagina 08/23/2006 Rosacea Encounters Date Type Department Care Team Description 11/26/2024 10:20 AM CDT Office Visit [facility] at [address] [id number] Alec Thomas MD Procedure (Left L5-S1 and left S1 TFESI) 11/26/2024 Travel 11/07/2024 1:00 PM CDT Office Visit [facility] [address] [place] [address] Alec Thomas MD Musculoskeletal Problem (Lower back pain) 11/07/2024 Travel 11/05/2024 Transcribe Orders [facility] [address] [place] [address] Smitha Curiel MD 11/05/2024 Telephone [facility] [address] [place] [address] Alec Thomas MD Referral from Last 3 Months Immunizations Immunization Administration Dates Next Due AMB Influenza, IIV3 (Age >=3 years)([facility]) 03/26/2010 Influenza A (H1N1), Inactivated (Age >=3 Years) 05/19/2009 Influenza, IIV3 (Age >=3 years) 04/20/2009 Td (Age >=7 Years) 02/21/2005 Zoster (Zostavax-ZVL, live) 08/23/2006 Family History Medical History Relation Name Comments Heart Disease Father Psychiatric illness Mother Alzheime r's Relation Name Status Comments Father Mother Social History Tobacco Use Types Packs/Day Years Used Date Smoking Tobacco: Never Alcohol Use Standard Drinks/Week Comments Not Asked 0 (1 standard drink = 0.6 oz pur e alcohol) Comments Unknown Sex and Gender Information Value Date Recorded Sex Assigned at Not on file Legal Sex Female 6:14 AM [employer] [facility] Gender Identity Not on file Sexual Orientation Not on file Obstetrics History Last Filed Vital Signs Vital Sign Reading Time Taken Comments Blood Pressure 150/86 11/07/2024 1:05 PM CDT Pulse 84 11/07/2024 1:05 PM CDT Temperature - - Respiratory Rate - - Oxygen Saturation 96% 11/07/2024 1:05 PM CDT Inhaled Oxygen Concentration - - Weight 69.3 kg (152 lb 12.8 oz) 11/07/2024 1:05 PM CDT Height - - Body Mass Index - - Plan of Treatment Upcoming Encounters Date Type Department Care Team (Late st Contact Info) Description 01/08/2025 10:20 AM CDT Office Visit [facility] [address] [place] [address] Alec Thomas MD [address] [place] [address] Health Maintenance Due Date Last Done Comments Depression screening for age 12+ 1955 BMI (ht and wt on same day) for age 18+ 1961 Pneumococcal series for age 50+ (1 of 1 - PCV) 1993 Zoster (shingles) series for age 50+ (2 of 3) 10/18/2006 08/23/2006 DEXA/DXA scan for age 65+ 2008 Medicare Wellness for age 65+ 2008 Tetanus booster 02/21/2015 02/21/2005 RSV vaccine for adults or (1 - 1-dose 75+ series) 2018 Influenza Vaccine (#1) 2025 03/26/2010, 2008 COVID-19 vaccine series ( season) 2025 08/31/2024, 11/05/2023, 03/06/2023, Additional history exists Hepatitis B series for 19+ Aged Out N o longer eligible based on patient's age to complete this topic Procedures Procedure Name Priority Date/Time Associated Diagnosis Comments AMB EPIDURAL STEROID INJECTION Routine 11/26/2024 6:52 AM CDT Radiculopathy, lumbar region Lumbar foraminal stenosis from Last 3 Months Insurance [employer] [place] [employer] [place] BLUE MR PB ONLY Care Teams Casing Running Machine Tender Relationship Specialty Start Date End Date Smitha Curiel MD [address] [place] [address] PCP - General Internal Medicine 11/07/24
== END 2024-11-26 08:46 | disposition home or self-care (01) ==
LOC: INJ CL 08:46
PROVIDERS: PCP Internal Medicine; Visit Provider Family Medicine
DX: M54.16 Radiculopathy, lumbar region (principal); M51.369 Other intervertebral disc degeneration, lumbar region without mention of lumbar back pain or lower extremity pain
CPT/HCPCS: 64483; 64484; J1100; Q9966

== ENCOUNTER 2025-01-14 07:25 | Outpatient (CLI) | payer MEDICARE, BC, SELFPAY | END 2025-01-14 07:26 | disposition home or self-care (01) | LOC: NFLDREF 01-21 13:11 | PROVIDERS: PCP Internal Medicine; Referring Provider Internal Medicine; Visit Provider Internal Medicine | DX: E03.9 Hypothyroidism, unspecified (principal); I10 Essential (primary) hypertension; E78.5 Hyperlipidemia, unspecified | CPT/HCPCS: 80048; 80061; 84443 ==

== ENCOUNTER 2025-01-23 07:30 | Outpatient (RCR) | payer MEDICARE, BC, SELFPAY ==
--- NOTE | 2024-11-13 08:29 | PT.OPEX ---
PT [place] Outpatient Eval PT [facility] Outpatient Eval Start: 11/13/24 07:24 Freq: Status: Active Protocol: Document 11/13/24 07:25 CRP (Rec: 11/13/24 08:26 CRP [id number]) E-signed By Bradford Norton PT Physical Therapy Outpatient Evaluation Insurance Information Recert Due Date 02/11/25 Insurance Name Medicare B Medical Diagnosis Cervical spine degenerative disc disease Referring MD Dr Ulloa Subjective Subjective Pt has had a long hx of neck pain and LBP with pain into the L LE. Will get cramping into the L calf as well feeling like there is water on her L LE. Pts primary concern is her neck pain. Her neck is very painful. Notes crepitus. Pain is both sides of her neck. No headaches. No pain into her UEs. No numbness or tingling into arms. is having health issues. She does need to help him physically which means lifting and strain on her neck. Sleep is not impacted by her pain. Pain Comments 02/05 Current Work Status Retired Objective Other/Pertinent Posture: WNL Objective Cervical ROM: Flex WNL, Ext min dec, R rot 25% dec, L rot 15% dec, R SB 25% dec, L SB 25% dec with R sided pain Shoulder ROM WNL MMT: Myotomes WNL. Deep cervical flex and ext 3+/5 Segmental testing: UPA pain grade 3- at R C4-6. R to L side glide restricted C4-6 Assessment Assessment/ Pt presents to the clinic with c/o cervical spine pain Impression and loss of mobility. Pts signs and sxs are consistent with cervical spine DDD/DJD resulting in facet mediated pain. Skilled PT is necessary to incorporate ther ex, nm long, manual ther and pt education to decrease pain and improve functional mobility. Primary Functional Reading Limitations Lifting Carrying Exercise Caring for her Plan of Care Rehabilitation Good Potential Physical Therapy 1. Pt will be independent with HEP in 8 weeks. Goals 2. Pt will read as desired with 75% decrease in pain in 10 weeks. 3. 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 Coordination/ Referral Source Communication With Treatment Plan/ Manual Therapy,Neuromuscular Re-ed,Self-Care/Home Direct Interventions Management,Therapeutic Activities,Therapeutic Exercises Frequency/Duration 1-2x/wk for 12 weeks Patient Will Be Completion of LTG(s),Skills Plateau,Independent w/HEP, Discharged From Independently Progressing Therapy Evaluation Billing Untimed Code 40 Treatment Minutes Complexity Moderate Certification Information Initial 11/13/24 Certification Date Ending Certification 02/11/25 Date Provider Signature Yes Required Provider Signature POC & Medical Necessity Shows Agreement With Physician NPI Number Write NPI# Here Physician Comment/ : Change Physician Signature Please Sign/Date Here & Date Requested
== END 2025-05-21 10:27 | disposition home or self-care (01) ==
PROVIDERS: PCP Internal Medicine; Visit Provider Family Medicine
DX: M50.30 Other cervical disc degeneration, unspecified cervical region (principal); Z51.89 Encounter for other specified aftercare
CPT/HCPCS: 97140; 97162

== ENCOUNTER 2025-05-09 15:31 | Outpatient (CLI) | payer MEDICARE, BC, SELFPAY ==
--- NOTE | 2025-05-09 16:00 | CRLHL7_ITS ---
For Patients: As a result of the Century Cures Act, medical imaging exams and procedure reports are released immediately into your electronic medical record. You may view this report before your referring provider. If you have questions, please contact your health care provider. Indication: FALL W/ RIB PAIN Technique: Noncontrast CT chest Please note that all CT scans at this facility use dose modulation, iterative reconstruction, and/or weight-based dosing when appropriate to reduce radiation dose to as low as reasonably achievable. Comparison: None Findings: No rib fracture. No vertebral body compression fracture. No adenopathy. 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 Scarring is present within the right lower lobe and to a lesser extent in the left lower lobe. Tiny pulmonary nodules are present bilaterally measuring 2 millimeters or less. Postop changes bilateral reduction mammoplasty. Impression: No rib fracture. No acute cardiopulmonary disease. Please note that all CT scans at this facility use dose modulation, iterative reconstruction, and/or weight-based dosing when appropriate to reduce radiation dose to as low as reasonably achievable. Dictated by Fabricio Miranda MD @ 05/12/2025 10:45:16 AM (Electronically Signed)
== END 2025-05-09 15:32 | disposition home or self-care (01) ==
LOC: CT 15:32
PROVIDERS: PCP Internal Medicine; Visit Provider Internal Medicine
DX: R07.89 Other chest pain (principal); S29.9XXA Unspecified injury of thorax, initial encounter
CPT/HCPCS: 71250